=== PATIENT | female | born 1990 | race African-American/Black ===

== ENCOUNTER 2018-05-12 23:57 | Inpatient (IN) | payer SELFPAY ==
[2018-05-13] MEDS ORDERED: LIDOCAINE 1% (MPF) 30 ML INJ INJ (00:30)
[2018-05-13] MEDS ORDERED: CARBOPROST 250 MCG INJ IM ×2 (00:30→16:00)
[2018-05-13] MEDS ORDERED: MINERAL OIL LIGHT 10 ML VIAL TOP (00:30)
[2018-05-13] MEDS ORDERED: OXYTOCIN 30 UNITS/LR 500 ML IV ×4 (00:30→16:00)
[2018-05-13] MEDS ORDERED: MISOPROSTOL 200 MCG TAB PR ×2 (00:30→16:00)
[2018-05-13] MEDS ORDERED: BUTORPHANOL 2 MG INJ IV (00:30)
[2018-05-13] MEDS ORDERED: METHYLERGONOVINE 0.2 MG INJ IM ×2 (00:30→16:00)
[2018-05-13] MEDS: LACTATED RINGER'S 1,000 ML IV ×5 (00:48→21:00)
[2018-05-13] MEDS: MISOPROSTOL 25 MCG CAPSULE VAG (01:00)
[2018-05-13 01:34] LABS: ADD MAN DIFF? NO
[2018-05-13 01:41] LABS: WHITE BLOOD COUNT 6.7 10^3/ul (4.8-10.8)
[2018-05-13 01:41] LABS: BASOPHILS % 0.5 % (0.0-2.0); EOSINOPHILS # 0.1 10^3/ul (0.0-0.5); EOSINOPHILS % 1.1 % (0.0-7.0); HEMATOCRIT 31.1 % (37.0-47.0); HEMOGLOBIN 9.6 g/dl (12.0-16.0); LYMPHOCYTES # 1.7 10^3/ul (0.8-2.9); LYMPHOCYTES % 25.9 % (15.0-51.0); MEAN CORPUSCULAR HEMOGLOBIN 24.6 pg (29.0-33.0); MEAN CORPUSCULAR HGB CONC 30.9 g/dl (32.0-37.0); MEAN CORPUSCULAR VOLUME 79.5 fl (82.0-101.0); MEAN PLATELET VOLUME 11.5 fl (7.4-10.4); MONOCYTE # 0.6 10^3/ul (0.3-0.9); MONOCYTES % 9.5 % (0.0-11.0); NEUTROPHIL # 4.1 10^3/ul (1.6-7.5); NEUTROPHILS % 61.9 % (39.0-77.0); PLATELET COUNT 171 10^3/UL (140-415); RED BLOOD COUNT 3.91 10^6/ul (4.20-5.40); RED CELL DISTRIBUTION WIDTH 17.4 % (11.5-14.5)
[2018-05-13 01:55] LABS: INR 0.84; PROTIME 11.6 Sec (11.9-14.9); PT RATIO 0.9
[2018-05-13 01:56] LABS: PARTIAL THROMBOPLASTIN TIME 25.7 Sec (23.0-35.0)
[2018-05-13 02:56] LABS: HEPATITIS B SURFACE ANTIGEN NEGATIVE (NEGATIVE)
[2018-05-13] MEDS: OXYTOCIN 30 UNITS/LR 500 ML IV ×3 (05:09→21:21)
[2018-05-13] MEDS ORDERED: OXYTOCIN 30 UNITS/LR 500 ML BAG IV (07:00)
[2018-05-13] MEDS ORDERED: LIDOCAINE 1% (MPF) 30 ML INJ (13:54)
[2018-05-13 14:53] LABS: RAPID PLASMA REAGIN NONREACTIVE (NR)
[2018-05-13] MEDS ORDERED: NALOXONE (0.4 MG/ML) INJ IV ×2 (15:30→17:00)
[2018-05-13] MEDS ORDERED: ONDANSETRON 4 MG INJ IV ×2 (15:30→17:00)
[2018-05-13] MEDS ORDERED: FENTAnyl 2MCG/ML-ROPIV 0.2% 100 ML BAG EPI (15:30)
[2018-05-13] MEDS ORDERED: CEFAZOLIN 2 GM/50 ML (PMX) 50 ML IVPB (15:37)
[2018-05-13] MEDS ORDERED: morphine SULFATE/PF (10 MG/10 ML) INJ (15:53)
[2018-05-13] MEDS ORDERED: PHENYLephrine (100 MCG/ML) 5ML SYG (15:54)
[2018-05-13] MEDS ORDERED: OXYTOCIN 10 UNIT INJ (15:54)
[2018-05-13] MEDS ORDERED: NACL 0.9% 3 ML SYG IV (16:00)
[2018-05-13] MEDS ORDERED: KETOROLAC 30 MG INJ IV (16:00)
[2018-05-13] MEDS ORDERED: PHENYLephrine 10 MG INJ (16:09)
[2018-05-13] MEDS ORDERED: morphine 2 MG INJ IV (17:00)
[2018-05-13] MEDS ORDERED: DIPHENHYDRAMINE 50 MG INJ IV (17:00)
[2018-05-13] MEDS: KETOROLAC 30 MG INJ IV (19:27)
[2018-05-13] MEDS: DIPHENHYDRAMINE 50 MG INJ IV (19:27)
[2018-05-13] MEDS: CEFAZOLIN 2 GM/50 ML (PMX) 50 ML IVPB (20:08)
[2018-05-14] MEDS: CEFAZOLIN 1 GM/50 ML (PMX) 50 ML IVPB ×4 (00:07→16:23)
[2018-05-14] MEDS: LACTATED RINGER'S 1,000 ML IV ×3 (00:18→16:18)
[2018-05-14] MEDS: DIPHENHYDRAMINE 50 MG INJ IV (05:08)
[2018-05-14 08:49] LABS: ADD MAN DIFF? NO
[2018-05-14 09:03] LABS: BASOPHILS % 0.4 % (0.0-2.0); EOSINOPHILS % 0.3 % (0.0-7.0); HEMOGLOBIN 8.9 g/dl (12.0-16.0); LYMPHOCYTES # 1.3 10^3/ul (0.8-2.9); LYMPHOCYTES % 17.8 % (15.0-51.0); MEAN CORPUSCULAR HEMOGLOBIN 24.9 pg (29.0-33.0); MEAN CORPUSCULAR HGB CONC 30.7 g/dl (32.0-37.0); MEAN CORPUSCULAR VOLUME 81.2 fl (82.0-101.0); MONOCYTE # 0.6 10^3/ul (0.3-0.9); MONOCYTES % 8.6 % (0.0-11.0); NEUTROPHIL # 5.2 10^3/ul (1.6-7.5); NEUTROPHILS % 72.3 % (39.0-77.0); PLATELET COUNT 164 10^3/UL (140-415); RED BLOOD COUNT 3.57 10^6/ul (4.20-5.40); RED CELL DISTRIBUTION WIDTH 17.2 % (11.5-14.5)
[2018-05-14 09:03] LABS: WHITE BLOOD COUNT 7.1 10^3/ul (4.8-10.8)
[2018-05-14] MEDS: KETOROLAC 30 MG INJ IV (11:16)
[2018-05-14] MEDS: HYDROCODONE/APAP (5/325) TAB PO ×2 (16:50→21:55)
[2018-05-15] MEDS: IBUPROFEN 600 MG TAB PO (01:59)
[2018-05-15] MEDS: HYDROCODONE/APAP (5/325) TAB PO ×3 (01:59→14:49)
[2018-05-15] MEDS: INFLUENZA VIRUS VACCINE 0.5 ML (DISPENSING) IM* (12:30)
== END 2018-05-15 18:06 | disposition home or self-care (01) | DRG 788 ==
LOC: L-D 23:57 → PP1 05-13 20:33
PROVIDERS: Obstetrics & Gynecology
PROC: 10D00Z1 Extraction of Products of Conception, Low, Open Approach (ICD-10-PCS; principal; 2018-05-13 16:15)
DX: O62.1 Secondary uterine inertia (principal); O76 Abnormality in fetal heart rate and rhythm complicating labor and delivery; Z3A.39 39 weeks gestation of pregnancy; Z37.0 Single live birth
CPT/HCPCS: 85025; 85610; 85730; 86592; 86850; 86870; 86900; 86901; 87340; 90686; 99464